=== PATIENT | female | born 1980 | race Caucasian/White ===

== ENCOUNTER 2020-07-03 10:23 | Day surgery (SDC) | payer MEDICARE, MEDICAID ==
[~2020-07-03] VITALS: Ht 165.1 cm; Wt 159.0 kg
[~2020-07-03 10:23] MED LIST: PHEN-716 PO; SULF1TAB49 PO
[2020-07-03 10:35] VITALS: BP 183/121
[2020-07-03] MEDS ORDERED: fentaNYL/PF 50MCG/1 ML 2ML syringe ONE (10:37)
[2020-07-03] MEDS ORDERED: MIDAZolam 5mg/5ml vial ONE (10:38)
[2020-07-03] MEDS ORDERED: METF-436 PO (11:08)
[2020-07-03 11:49] VITALS: BP 143/94
[2020-07-03 11:59] VITALS: BP 159/84
[2020-07-03 12:09] VITALS: BP 148/89
[2020-07-03 12:19] VITALS: BP 146/49
== END 2020-07-03 12:33 | disposition home or self-care (01) ==
LOC: GI LAB 10:23
PROVIDERS: ATTEND Internal Medicine Gastroenterology
DX: K92.1 Melena (principal); K59.00 Constipation, unspecified; D12.8 Benign neoplasm of rectum; K64.8 Other hemorrhoids; E11.9 Type 2 diabetes mellitus without complications; Z79.84 Long term (current) use of oral hypoglycemic drugs
CPT/HCPCS: 45385; C1773; G0500; J2250; J3010; J7040; 99152; A4620

== ENCOUNTER 2021-10-03 13:02 | Emergency (ER) | payer MEDICARE, MEDICAID ==
[~2021-10-03] VITALS: Ht 165.1 cm; Wt 215.9 kg
[~2021-10-03 13:02] MED LIST changes: +FERR325T29 PO; +LINE600T14 PO; +METF-1203 PO; +NYST60PO2 TP; -PHEN-716 PO; -SULF1TAB49 PO
[2021-10-03 14:40] LABS: ALANINE AMINOTRANSFERASE 12 U/L (12-78); ALBUMIN 2.8 G/DL (3.4-5.0); ALBUMIN/GLOBULIN RATIO 0.5 (1.1-1.5); ALKALINE PHOSPHATASE 44 IU/L (46-116); ANION GAP 11 (8-16); ASPARTATE AMINO TRANSFERASE 15 U/L (10-37); BILIRUBIN,TOTAL 0.3 MG/DL (0.1-1.0); BLOOD UREA NITROGEN 18 MG/DL (7-18); BUN/CREATININE RATIO 23.1 (6.6-38.0); C-REACTIVE PROTEIN 15.64 MG/DL (0.0-0.5); CALCIUM 8.6 MG/DL (8.5-10.1); CHLORIDE 105 MMOL/L (99-107); CREATININE 0.78 MG/DL (0.40-0.90); GLUCOSE 85 MG/DL (70-104); POTASSIUM 3.9 MMOL/L (3.5-5.1); SODIUM 139 MMOL/L (135-145); TOTAL CARBON DIOXIDE 23.3 MMOL/L (24-32); eGFR 81 ML/MIN
[2021-10-03 14:49] LABS: BASOPHILS % (AUTO) 0.3 % (0-1); EOSINOPHILS % (AUTO) 0.5 % (0-6); HEMATOCRIT 30.4 % (35.0-45.0); HEMOGLOBIN 9.4 g/dl (12.0-16.0); LYMPHOCYTES # (AUTO) 1.1 X10'3 (1.1-4.8); LYMPHOCYTES % (AUTO) 15.2 % (21-51); MEAN CORPUSCULAR HEMOGLOBIN 23.3 PG (27.0-31.0); MEAN CORPUSCULAR HGB CONC 30.9 g/dL (33.0-36.5); MEAN CORPUSCULAR VOLUME 75.5 FL (78-98); MEAN PLATELET VOLUME 9.3 FL (7.4-10.4); MONOCYTES # (AUTO) 0.5 X10'3 (0-0.9); MONOCYTES % (AUTO) 7.3 % (2-12); NEUTROPHILS # (AUTO) 5.4 X10'3 (1.8-7.7); NEUTROPHILS % (AUTO) 76.7 % (42-75); PLATELET COUNT 233 X10'3 (140-440); RED BLOOD COUNT 4.03 X10'6 (4.20-5.60); RED CELL DISTRIBUTION WIDTH 19.9 % (11.5-14.5)
[2021-10-03 15:19] LABS: ANISOCYTOSIS 2+; HYPOCHROMASIA 1+; MICROCYTOSIS 1+; PLATELET ESTIMATE NORMAL
[2021-10-03 15:20] LABS: LARGE PLATELETS FEW
[2021-10-03] MEDS ORDERED: levoFLOXACIN-Levaquin 750MG/D5 150 ML IV STA (18:46)
[2021-10-03] MEDS ORDERED: linezolid 600mg/300ml PREMIX 300 ML IV STA (21:15)
[2021-10-03] MEDS ORDERED: linezolid 600mg tablet PO ONE (21:55)
[2021-10-03] MEDS ORDERED: LINE600T11 PO (21:58)
[2021-10-04 00:05] VITALS: BP 111/89
== END 2021-10-04 00:08 | disposition home or self-care (01) ==
LOC: ER 13:04
DX: L03.116 Cellulitis of left lower limb (principal); I89.0 Lymphedema, not elsewhere classified; Z98.890 Other specified postprocedural states; Z79.899 Other long term (current) drug therapy
CPT/HCPCS: 36415; 73590; 80053; 83605; 84145; 85008; 85025; 85651; 86140; 87040; 99284

== ENCOUNTER 2022-01-11 11:10 | Emergency (ER) | payer MEDICARE, MEDICAID ==
[~2022-01-11] VITALS: Ht 165.1 cm; Wt 128.7 kg
[~2022-01-11 11:10] MED LIST changes: -FERR325T29 PO; -LINE600T14 PO; -NYST60PO2 TP
[2022-01-11] MEDS ORDERED: cefTRIAXone 1g/NS 100ml IVPB 100 ML IV ONE (12:00)
[2022-01-11] MEDS ORDERED: fluconazole 100mg tablet PO ONE (12:00)
[2022-01-11 12:30] LABS: BASOPHILS % (AUTO) 0.4 % (0-1); EOSINOPHILS # (AUTO) 0.1 X10'3 (0-0.9); EOSINOPHILS % (AUTO) 1.9 % (0-6); HEMATOCRIT 29.3 % (35.0-45.0); HEMOGLOBIN 9.2 g/dl (12.0-16.0); LYMPHOCYTES % (AUTO) 12.8 % (21-51); MEAN CORPUSCULAR HEMOGLOBIN 21.8 PG (27.0-31.0); MEAN CORPUSCULAR HGB CONC 31.4 g/dL (33.0-36.5); MEAN CORPUSCULAR VOLUME 69.3 FL (78-98); MEAN PLATELET VOLUME 7.7 FL (7.4-10.4); MONOCYTES # (AUTO) 0.7 X10'3 (0-0.9); MONOCYTES % (AUTO) 8.5 % (2-12); NEUTROPHILS # (AUTO) 5.9 X10'3 (1.8-7.7); NEUTROPHILS % (AUTO) 76.4 % (42-75); PLATELET COUNT 346 X10'3 (140-440); RED BLOOD COUNT 4.23 X10'6 (4.20-5.60); RED CELL DISTRIBUTION WIDTH 21.6 % (11.5-14.5); WHITE BLOOD COUNT 7.7 X10'3 (4.5-11.0)
[2022-01-11 12:43] LABS: ALANINE AMINOTRANSFERASE 17 U/L (12-78); ALBUMIN 2.8 G/DL (3.4-5.0); ALBUMIN/GLOBULIN RATIO 0.5 (1.1-1.5); ALKALINE PHOSPHATASE 45 IU/L (46-116); ANION GAP 8 (8-16); ASPARTATE AMINO TRANSFERASE 12 U/L (10-37); BILIRUBIN,TOTAL 0.3 MG/DL (0.1-1.0); BLOOD UREA NITROGEN 16 MG/DL (7-18); BUN/CREATININE RATIO 18.8 (6.6-38.0); CALCIUM 8.5 MG/DL (8.5-10.1); CHLORIDE 106 MMOL/L (99-107); CREATININE 0.85 MG/DL (0.40-0.90); GLUCOSE 90 MG/DL (70-104); POTASSIUM 4.7 MMOL/L (3.5-5.1); SODIUM 139 MMOL/L (135-145); TOTAL CARBON DIOXIDE 25.2 MMOL/L (24-32); TOTAL PROTEIN 8.1 G/DL (6.4-8.2); eGFR 73 ML/MIN
--- NOTE | 2022-01-11 13:31 | NUR ---
unable to start piv,Dr. Portillo made aware,will change order to po med.Urine obtained via straight cath.
[2022-01-11 13:39] LABS: CLARITY,URINE SLIGHTLY CLOUDY (Clear); COLOR,URINE YELLOW (Yellow); GLUCOSE, URINE NEGATIVE (Neg); KETONES,URINE NEGATIVE (Neg); LEUKOCYTE ESTERASE ,URINE SMALL (Neg); NITRITES, URINE POSITIVE (Neg); OCCULT BLOOD,URINE MODERATE (Neg); PROTEIN,URINE NEGATIVE (Neg); UROBILINOGEN,URINE 0.2 E.U/dL (0.2-1.0)
[2022-01-11 13:43] LABS: UA COLLECTION TYPE STRAIGHT CATH
[2022-01-11 13:44] LABS: BACTERIA,URINE NONE SEEN /HPF (Neg); MUCUS STRANDS FEW /LPF (Neg); RBC,URINE 0-2 /HPF (0-2); SQUAMOUS EPITHELIAL CELL,UR FEW /LPF (FEW); WBC,URINE 30-50 /HPF (0-4)
[2022-01-11] MEDS ORDERED: CEPH-585 PO ×2 (13:54→14:09)
[2022-01-11] MEDS ORDERED: NYST15PO4 TOP ×2 (13:54→14:09)
--- NOTE | 2022-01-11 14:10 | NUR ---
REDNESS MARKED ON LEFT LOWER ABD BELOW PANNUS WITH SKIN MARKER
[2022-01-11 14:13] VITALS: BP 130/77
== END 2022-01-11 14:15 | disposition home or self-care (01) ==
LOC: ER 11:11
DX: L03.116 Cellulitis of left lower limb (principal); N39.0 Urinary tract infection, site not specified; L30.4 Erythema intertrigo; Z98.890 Other specified postprocedural states; Z79.2 Long term (current) use of antibiotics; Z79.899 Other long term (current) drug therapy
CPT/HCPCS: 36415; 80053; 81001; 85025; 87077; 87088; 87186; 96365; 99284; J0696

== ENCOUNTER 2022-01-31 11:21 | Emergency (ER) | payer MEDICARE, MEDICAID ==
[~2022-01-31] VITALS: Ht 165.1 cm; Wt 132.4 kg
[~2022-01-31 11:21] MED LIST changes: +CEPH-585 PO; +NYST15PO4 TOP
[2022-01-31 11:46] VITALS: BP 134/79
[2022-01-31] MEDS ORDERED: FLUC200T PO (14:14)
[2022-01-31] MEDS ORDERED: NYSPWD TP (14:14)
== END 2022-01-31 14:22 | disposition home or self-care (01) ==
LOC: ER 11:22
DX: B37.89 Other sites of candidiasis (principal); Z87.440 Personal history of urinary (tract) infections; Z79.2 Long term (current) use of antibiotics; Z79.899 Other long term (current) drug therapy
CPT/HCPCS: 99283

== ENCOUNTER 2023-07-03 17:22 | Emergency (ER) | payer MEDICARE, MEDICAID ==
[~2023-07-03] VITALS: Ht 165.1 cm; Wt 160.0 kg
[~2023-07-03 17:22] MED LIST changes: -CEPH-585 PO; -METF-1203 PO; +NO HOME MEDS; -NYST15PO4 TOP
[2023-07-03] MEDS ORDERED: methylPREDNISolone sod succ 125mg/2ml vial IV ONE (17:25)
[2023-07-03] MEDS ORDERED: LORazepam 2 mg/ml vial IV ONE (17:25)
[2023-07-03] MEDS ORDERED: famotidine/PF 10 mg/ml inj IV ONE (19:25)
[2023-07-03] MEDS ORDERED: diphenhydrAMINE 50 mg/ml inj IV ONE (19:25)
[2023-07-03] MEDS ORDERED: FAMO-129 PO (20:48)
[2023-07-03] MEDS ORDERED: DIPH25CA83 PO (20:48)
[2023-07-03] MEDS ORDERED: PRED20TA PO (20:48)
[2023-07-03 20:57] VITALS: BP 130/85; PULSE 95; RESP 17; TEMP 98.9; O2SAT 99
[2023-07-03] MEDS ORDERED: dexamethasone sod phosphate 10mg/ml inj IV STA (21:01)
== END 2023-07-03 21:13 | disposition home or self-care (01) ==
LOC: ER 17:22
DX: S80.922A Unspecified superficial injury of left lower leg, initial encounter (principal); L50.9 Urticaria, unspecified; Z79.899 Other long term (current) drug therapy; X58.XXXA Exposure to other specified factors, initial encounter; Y93.89 Activity, other specified; Y92.89 Other specified places as the place of occurrence of the external cause; Y99.8 Other external cause status
CPT/HCPCS: 96374; 96375; 99284; J1100; J1200; J2060; J2930; J3490

== ENCOUNTER 2023-07-05 14:09 | Emergency (ER) | payer MEDICARE, MEDICAID ==
[~2023-07-05] VITALS: Ht 165.1 cm; Wt 129.6 kg
[~2023-07-05 14:09] MED LIST changes: +DIPH25CA83 PO; +FAMO-129 PO; +PRED20TA PO
[2023-07-05] MEDS ORDERED: normal saline 1000ML IV soln IVB ONE ×2 (17:20→22:05)
[2023-07-05 21:07] LABS: BASOPHILS % (AUTO) 0.4 % (0-1); EOSINOPHILS % (AUTO) 0 % (0-6); HEMATOCRIT 39.6 % (35.0-45.0); HEMOGLOBIN 12.8 g/dl (12.0-16.0); LYMPHOCYTES # (AUTO) 1.3 X10'3 (1.1-4.8); LYMPHOCYTES % (AUTO) 13.2 % (21-51); MEAN CORPUSCULAR HEMOGLOBIN 26.2 PG (27.0-31.0); MEAN CORPUSCULAR HGB CONC 32.3 g/dL (33.0-36.5); MEAN CORPUSCULAR VOLUME 81.2 FL (78-98); MEAN PLATELET VOLUME 8.8 FL (7.4-10.4); MONOCYTES # (AUTO) 0.4 X10'3 (0-0.9); MONOCYTES % (AUTO) 4.2 % (2-12); NEUTROPHILS % (AUTO) 82.2 % (42-75); PLATELET COUNT 364 X10'3 (140-440); RED BLOOD COUNT 4.88 X10'6 (4.20-5.60); WHITE BLOOD COUNT 9.8 X10'3 (4.5-11.0)
[2023-07-05 21:13] LABS: ALANINE AMINOTRANSFERASE 27 U/L (12-78); ALBUMIN 3.1 G/DL (3.4-5.0); ALBUMIN/GLOBULIN RATIO 0.7 (1.1-1.5); ALKALINE PHOSPHATASE 44 IU/L (46-116); ANION GAP 8 (8-16); ASPARTATE AMINO TRANSFERASE 15 U/L (10-37); BLOOD UREA NITROGEN 18 MG/DL (7-18); BUN/CREATININE RATIO 18.9 (10.0-20.0); CALCIUM 8.5 MG/DL (8.5-10.1); CHLORIDE 106 MMOL/L (99-107); CREATININE 0.95 MG/DL (0.40-0.90); GLUCOSE 115 MG/DL (70-104); SODIUM 139 MMOL/L (135-145); TOTAL CARBON DIOXIDE 24.6 MMOL/L (24-32); TOTAL PROTEIN 7.6 G/DL (6.4-8.2); eCRCL 67 ML/MIN; eGFR 64 ML/MIN
[2023-07-05 21:14] LABS: BILIRUBIN,TOTAL 0.2 MG/DL (0.1-1.0); LIPASE 32 U/L (16-77)
[2023-07-05 21:20] LABS: BILIRUBIN,URINE NEGATIVE (Neg); CLARITY,URINE CLOUDY (Clear); COLOR,URINE YELLOW (Yellow); GLUCOSE, URINE NEGATIVE (Neg); KETONES,URINE NEGATIVE (Neg); LEUKOCYTE ESTERASE ,URINE SMALL (Neg); NITRITES, URINE POSITIVE (Neg); OCCULT BLOOD,URINE MODERATE (Neg); PROTEIN,URINE NEGATIVE (Neg); UROBILINOGEN,URINE 0.2 E.U/dL (0.2-1.0)
[2023-07-05 21:21] LABS: UA COLLECTION TYPE CLN CATCH MIDSTREAM
[2023-07-05 21:46] LABS: BACTERIA,URINE 4+ /HPF (Neg); MUCUS STRANDS MODERATE /LPF (Neg); SQUAMOUS EPITHELIAL CELL,UR MANY /LPF (FEW)
[2023-07-05] MEDS ORDERED: pantoprazole 40 MG vial IV ONE (22:05)
[2023-07-05] MEDS ORDERED: ondansetron/PF 4mg/2ml inj IV ONE (22:05)
[2023-07-05] MEDS ORDERED: morphine 2 MG/ML inj. syringe IV PRN (22:05)
[2023-07-05] MEDS ORDERED: pantoprazole 40MG/NS 100ML BAG 100 ML IV ONE (22:10)
[2023-07-05] MEDS ORDERED: famotidine/PF 10 mg/ml inj IV ONE (22:35)
[2023-07-05] MEDS ORDERED: sucralfate 1 gm tablet PO ONE (22:35)
[2023-07-05] MEDS ORDERED: mag hydrox/Alum hydrox/simeth 30ml oral suspension PO ONE (22:35)
[2023-07-05 23:19] LABS: URINE HCG NEGATIVE (NEG)
[2023-07-05] MEDS ORDERED: iohexol 300mg/ml 100ml inj. ONE (23:31)
[2023-07-05] MEDS ORDERED: LORazepam 2 mg/ml vial IV ONE (23:45)
[2023-07-06 02:34] VITALS: BP 144/82; PULSE 63; RESP 26; O2SAT 97
[2023-07-06] MEDS ORDERED: SUCR1TAB34 PO (02:54)
[2023-07-06] MEDS ORDERED: MAG355OR18 PO (02:54)
[2023-07-06 03:32] VITALS: TEMP 97.7
== END 2023-07-06 03:47 | disposition home or self-care (01) ==
LOC: ER 14:10
DX: R10.9 Unspecified abdominal pain (principal); R11.10 Vomiting, unspecified
CPT/HCPCS: 36415; 71045; 74177; 80053; 81001; 81025; 83690; 85025; 96365; 96366; 96375; 99285; C9113; J2060; J2405; J3490; J7030; J7040; Q9967

== ENCOUNTER 2023-08-06 12:44 | Emergency (ER) | payer MEDICARE, MEDICAID ==
[~2023-08-06] VITALS: Ht 165.1 cm; Wt 169.5 kg
[~2023-08-06 12:44] MED LIST changes: -PRED20TA PO; +SUCR1TAB34 PO
[2023-08-06] MEDS ORDERED: piperacillin/tazo 3.375gm/50ml 50 ML IV ONE ×2 (14:50→17:15)
[2023-08-06] MEDS ORDERED: DOXYCYCLINE 100MG CAPSULE PO STA (14:50)
[2023-08-06] MEDS ORDERED: SULF1TAB45 PO (15:13)
[2023-08-06 18:23] VITALS: BP 148/88; PULSE 94; RESP 16; TEMP 98.4; O2SAT 99
--- NOTE | 2023-08-06 19:43 | NUR ---
AGREE WITH SHAYLA, SHIP PURSER ASSESSMENT, REVIEWED.
== END 2023-08-06 18:26 | disposition home or self-care (01) ==
LOC: ER 12:45
DX: S81.802A Unspecified open wound, left lower leg, initial encounter (principal); Z88.1 Allergy status to other antibiotic agents; Z79.2 Long term (current) use of antibiotics; Z79.899 Other long term (current) drug therapy; X58.XXXA Exposure to other specified factors, initial encounter; Y93.89 Activity, other specified; Y92.89 Other specified places as the place of occurrence of the external cause; Y99.8 Other external cause status
CPT/HCPCS: 96365; 99284; J2543

== ENCOUNTER 2023-09-22 14:13 | Emergency (ER) | payer MEDICARE, MEDICAID ==
[~2023-09-22] VITALS: Ht 165.1 cm; Wt 172.7 kg
[2023-09-22 18:22] LABS: EOSINOPHILS # (AUTO) 0.2 X10'3 (0-0.9); MEAN CORPUSCULAR HEMOGLOBIN 24.9 PG (27.0-31.0); MONOCYTES # (AUTO) 0.6 X10'3 (0-0.9)
[2023-09-22 18:24] LABS: BASOPHILS # (AUTO) 0.1 X10'3 (0-0.2); BASOPHILS % (AUTO) 1.3 % (0-1); EOSINOPHILS % (AUTO) 2.3 % (0-6); HEMATOCRIT 39.6 % (35.0-45.0); HEMOGLOBIN 12.7 g/dl (12.0-16.0); LYMPHOCYTES # (AUTO) 1.5 X10'3 (1.1-4.8); LYMPHOCYTES % (AUTO) 17.8 % (21-51); MEAN CORPUSCULAR VOLUME 77.8 FL (78-98); MEAN PLATELET VOLUME 8.6 FL (7.4-10.4); MONOCYTES % (AUTO) 6.9 % (2-12); NEUTROPHILS # (AUTO) 6.2 X10'3 (1.8-7.7); NEUTROPHILS % (AUTO) 71.7 % (42-75); PLATELET COUNT 351 X10'3 (140-440); RED BLOOD COUNT 5.09 X10'6 (4.20-5.60); RED CELL DISTRIBUTION WIDTH 16.3 % (11.5-14.5); WHITE BLOOD COUNT 8.6 X10'3 (4.5-11.0)
[2023-09-22 18:36] LABS: ALANINE AMINOTRANSFERASE 39 U/L (12-78); ALBUMIN/GLOBULIN RATIO 0.5 (1.1-1.5); ALKALINE PHOSPHATASE 43 IU/L (46-116); ANION GAP 7 (8-16); ASPARTATE AMINO TRANSFERASE 26 U/L (10-37); BILIRUBIN,TOTAL 0.3 MG/DL (0.1-1.0); BLOOD UREA NITROGEN 13 MG/DL (7-18); BUN/CREATININE RATIO 14.4 (10.0-20.0); CALCIUM 9.1 MG/DL (8.5-10.1); CHLORIDE 105 MMOL/L (99-107); GLUCOSE 86 MG/DL (70-104); POTASSIUM 4.4 MMOL/L (3.5-5.1); SODIUM 141 MMOL/L (135-145); TOTAL CARBON DIOXIDE 29.4 MMOL/L (24-32); TOTAL PROTEIN 8.5 G/DL (6.4-8.2); eCRCL 71 ML/MIN; eGFR 68 ML/MIN
[2023-09-22] MEDS ORDERED: azithromycin 250mg tablet PO ONE (20:30)
[2023-09-22] MEDS ORDERED: ipratropium/albuterol 3ml nebule NEB ONE (20:30)
[2023-09-22] MEDS ORDERED: amox tr/potassium clavulanate 875/125mg TAB PO ONE (20:30)
[2023-09-22] MEDS ORDERED: predniSONE 20 mg tablet PO ONE (20:30)
[2023-09-22 20:51] VITALS: PULSE 87; RESP 18
[2023-09-22 20:58] VITALS: PULSE 88; RESP 18; O2SAT 98
[2023-09-22] MEDS ORDERED: PRED20TA PO (21:04)
[2023-09-22] MEDS ORDERED: AZIT250T83 PO (21:04)
[2023-09-22] MEDS ORDERED: ALBU8HFA PO (21:04)
[2023-09-22] MEDS ORDERED: AMOX-117 PO (21:04)
[2023-09-22 21:21] VITALS: BP 153/90; PULSE 101; RESP 17; TEMP 97.6; O2SAT 0
== END 2023-09-22 21:24 | disposition home or self-care (01) ==
LOC: ER 14:14
DX: J20.9 Acute bronchitis, unspecified (principal); Z88.1 Allergy status to other antibiotic agents; Z79.2 Long term (current) use of antibiotics; Z79.899 Other long term (current) drug therapy
CPT/HCPCS: 36415; 71045; 80053; 83605; 84145; 85025; 87040; 94640; 99284; J7512; 94760

== ENCOUNTER 2023-09-30 16:03 | Emergency (ER) | payer MEDICARE, MEDICAID ==
[~2023-09-30] VITALS: Ht 165.1 cm; Wt 163.0 kg
[~2023-09-30 16:03] MED LIST changes: +ALBU8HFA PO; +AMOX-117 PO
[2023-09-30 19:17] LABS: BASOPHILS # (AUTO) 0.1 X10'3 (0-0.2); BASOPHILS % (AUTO) 1.5 % (0-1); EOSINOPHILS # (AUTO) 0.1 X10'3 (0-0.9); EOSINOPHILS % (AUTO) 0.6 % (0-6); HEMATOCRIT 42.2 % (35.0-45.0); HEMOGLOBIN 13.6 g/dl (12.0-16.0); LYMPHOCYTES # (AUTO) 2.7 X10'3 (1.1-4.8); LYMPHOCYTES % (AUTO) 26.3 % (21-51); MEAN CORPUSCULAR HEMOGLOBIN 25.1 PG (27.0-31.0); MEAN CORPUSCULAR HGB CONC 32.1 g/dL (33.0-36.5); MEAN CORPUSCULAR VOLUME 78.1 FL (78-98); MEAN PLATELET VOLUME 8.9 FL (7.4-10.4); MONOCYTES # (AUTO) 0.6 X10'3 (0-0.9); MONOCYTES % (AUTO) 5.6 % (2-12); NEUTROPHILS # (AUTO) 6.7 X10'3 (1.8-7.7); PLATELET COUNT 404 X10'3 (140-440); RED CELL DISTRIBUTION WIDTH 16.6 % (11.5-14.5); WHITE BLOOD COUNT 10.2 X10'3 (4.5-11.0)
[2023-09-30 19:26] LABS: ALANINE AMINOTRANSFERASE 28 U/L (12-78); ALBUMIN 3.5 G/DL (3.4-5.0); ALBUMIN/GLOBULIN RATIO 0.7 (1.1-1.5); ALKALINE PHOSPHATASE 46 IU/L (46-116); ANION GAP 9 (8-16); ASPARTATE AMINO TRANSFERASE 17 U/L (10-37); BILIRUBIN,TOTAL 0.5 MG/DL (0.1-1.0); BLOOD UREA NITROGEN 16 MG/DL (7-18); BUN/CREATININE RATIO 17.8 (10.0-20.0); CALCIUM 9.1 MG/DL (8.5-10.1); CHLORIDE 104 MMOL/L (99-107); GLUCOSE 98 MG/DL (70-104); LIPASE 46 U/L (16-77); POTASSIUM 3.7 MMOL/L (3.5-5.1); SODIUM 140 MMOL/L (135-145); TOTAL CARBON DIOXIDE 27.3 MMOL/L (24-32); TOTAL PROTEIN 8.7 G/DL (6.4-8.2); eCRCL 71 ML/MIN; eGFR 68 ML/MIN
[2023-10-01] MEDS ORDERED: ondansetron/PF 4mg/2ml inj IV ONE (10:10)
[2023-10-01] MEDS ORDERED: HYDROmorphone 1 mg/ml syringe IV STA (10:10)
[2023-10-01 10:44] LABS: BILIRUBIN,URINE NEGATIVE (Neg); CLARITY,URINE SLIGHTLY CLOUDY (Clear); COLOR,URINE YELLOW (Yellow); GLUCOSE, URINE NEGATIVE (Neg); KETONES,URINE NEGATIVE (Neg); LEUKOCYTE ESTERASE ,URINE SMALL (Neg); NITRITES, URINE NEGATIVE (Neg); OCCULT BLOOD,URINE NEGATIVE (Neg); PH,URINE 5.5 (4.8-8.0); PROTEIN,URINE TRACE mg/dl (Neg); UROBILINOGEN,URINE 0.2 E.U/dL (0.2-1.0)
[2023-10-01 10:46] LABS: UA COLLECTION TYPE CLN CATCH MIDSTREAM
[2023-10-01 10:52] LABS: URINE HCG NEGATIVE (NEG)
[2023-10-01 10:59] LABS: SQUAMOUS EPITHELIAL CELL,UR MANY /LPF (FEW)
[2023-10-01] MEDS ORDERED: ondansetron 4mg rapidly disintigrating tab PO ONE (11:00)
[2023-10-01] MEDS ORDERED: HYDROmorphone 1 mg/ml syringe IM ONE (11:00)
[2023-10-01 11:04] LABS: CAL OXALATE CRYSTALS 1+ /HPF (NEGATIVE)
[2023-10-01 11:05] LABS: WBC,URINE 30-50 /HPF (0-4)
[2023-10-01 11:10] LABS: MUCUS STRANDS MODERATE /LPF (Neg)
[2023-10-01 11:12] LABS: BACTERIA,URINE 1+ /HPF (Neg)
[2023-10-01 11:15] LABS: TRANSITIONAL EPI CELLS,URINE FEW /HPF
[2023-10-01 11:20] LABS: WBC CLUMPS,URINE FEW /HPF (NEGATIVE)
[2023-10-01 11:22] LABS: YEAST FEW /HPF (NEGATIVE)
[2023-10-01 12:12] LABS: HCG SERUM QL NEGATIVE
[2023-10-01] MEDS ORDERED: CefTRIAXone/D5W-Rocephin 1gm 50 ML IV STA (12:22)
[2023-10-01] MEDS ORDERED: CefTRIAXone 500MG IM Kit w/LIDOcaine IM ONE (13:20)
[2023-10-01 13:33] LABS: BILIRUBIN,URINE NEGATIVE (Neg); CLARITY,URINE SLIGHTLY CLOUDY (Clear); COLOR,URINE YELLOW (Yellow); GLUCOSE, URINE NEGATIVE (Neg); KETONES,URINE NEGATIVE (Neg); LEUKOCYTE ESTERASE ,URINE TRACE (Neg); NITRITES, URINE NEGATIVE (Neg); OCCULT BLOOD,URINE TRACE-INTACT (Neg); PROTEIN,URINE NEGATIVE (Neg); UROBILINOGEN,URINE 0.2 E.U/dL (0.2-1.0)
[2023-10-01] MEDS ORDERED: CefTRIAXone 1000mg IM Kit (w/lidocaine diluent) IM ONE (13:35)
[2023-10-01 13:36] LABS: UA COLLECTION TYPE CLN CATCH MIDSTREAM
[2023-10-01 14:00] LABS: MUCUS STRANDS MANY /LPF (Neg); SQUAMOUS EPITHELIAL CELL,UR MANY /LPF (FEW)
[2023-10-01 14:02] LABS: WBC,URINE 20-30 /HPF (0-4)
[2023-10-01 14:03] LABS: RBC,URINE 0-2 /HPF (0-2)
[2023-10-01 14:05] LABS: BACTERIA,URINE 1+ /HPF (Neg)
[2023-10-01] MEDS ORDERED: CEPH-585 PO (14:56)
[2023-10-01] MEDS ORDERED: HYDR-3965 PO (14:56)
[2023-10-01 15:21] VITALS: BP 153/92; PULSE 69; RESP 16; TEMP 98.2; O2SAT 96
== END 2023-10-01 16:06 | disposition home or self-care (01) ==
LOC: ER 16:03
DX: N39.0 Urinary tract infection, site not specified (principal); R10.31 Right lower quadrant pain; R51.9 Headache, unspecified; Z88.1 Allergy status to other antibiotic agents; Z79.899 Other long term (current) drug therapy
CPT/HCPCS: 36415; 74176; 76770; 76857; 80053; 81001; 81025; 83690; 84703; 85025; 96372; 99285; J0696; J1170; J7030; C1758

== ENCOUNTER 2024-01-07 13:31 | Inpatient (IN) | payer MEDICARE, MEDICAID ==
[~2024-01-07] VITALS: Ht 165.1 cm; Wt 168.0 kg
[~2024-01-07 13:31] MED LIST changes: -ALBU8HFA PO; -AMOX-117 PO
[2024-01-07] MEDS: vancomycin/NS 1 GM ADD-VANTAGE 250 ML X 1 DOSE IV ONE (15:15)
[2024-01-07] MEDS: normal saline 1000ML IV soln IV ONE (15:53)
[2024-01-07] MEDS: CefTRIAXone 2gm/D5W 50ml BAG 50 ML IV ONE (15:54)
[2024-01-07 16:09] LABS: BASOPHILS # (AUTO) 0.1 X10'3 (0-0.2); BASOPHILS % (AUTO) 0.8 % (0-1); EOSINOPHILS # (AUTO) 0.1 X10'3 (0-0.9); EOSINOPHILS % (AUTO) 1.3 % (0-6); HEMATOCRIT 36.9 % (35.0-45.0); HEMOGLOBIN 11.8 g/dl (12.0-16.0); LYMPHOCYTES # (AUTO) 1.3 X10'3 (1.1-4.8); LYMPHOCYTES % (AUTO) 19.5 % (21-51); MEAN CORPUSCULAR HEMOGLOBIN 24.2 PG (27.0-31.0); MEAN CORPUSCULAR HGB CONC 32.1 g/dL (33.0-36.5); MEAN CORPUSCULAR VOLUME 75.4 FL (78-98); MEAN PLATELET VOLUME 8.5 FL (7.4-10.4); MONOCYTES # (AUTO) 0.7 X10'3 (0-0.9); MONOCYTES % (AUTO) 10.2 % (2-12); NEUTROPHILS # (AUTO) 4.5 X10'3 (1.8-7.7); NEUTROPHILS % (AUTO) 68.2 % (42-75); PLATELET COUNT 295 X10'3 (140-440); RED BLOOD COUNT 4.89 X10'6 (4.20-5.60); RED CELL DISTRIBUTION WIDTH 17.2 % (11.5-14.5); WHITE BLOOD COUNT 6.7 X10'3 (4.5-11.0)
[2024-01-07 16:17] LABS: ALBUMIN 2.9 G/DL (3.4-5.0); ANION GAP 7 (8-16); BLOOD UREA NITROGEN 10 MG/DL (7-18); CALCIUM 8.7 MG/DL (8.5-10.1); CHLORIDE 105 MMOL/L (99-107); CREATININE 0.83 MG/DL (0.40-0.90); GLUCOSE 87 MG/DL (70-104); MAGNESIUM 1.9 MG/DL (1.5-2.4); SODIUM 141 MMOL/L (135-145); eCRCL 77 ML/MIN; eGFR 74 ML/MIN
[2024-01-07 17:19] LABS: URINE HCG NEGATIVE (NEG)
[2024-01-07 17:29] LABS: BILIRUBIN,URINE NEGATIVE (Neg); CLARITY,URINE CLOUDY (Clear); COLOR,URINE YELLOW (Yellow); GLUCOSE, URINE NEGATIVE (Neg); KETONES,URINE NEGATIVE (Neg); LEUKOCYTE ESTERASE ,URINE MODERATE (Neg); NITRITES, URINE POSITIVE (Neg); OCCULT BLOOD,URINE TRACE-INTACT (Neg); PROTEIN,URINE NEGATIVE (Neg); UROBILINOGEN,URINE 0.2 E.U/dL (0.2-1.0)
[2024-01-07 17:35] LABS: UA COLLECTION TYPE VOIDED
[2024-01-07 17:36] LABS: SQUAMOUS EPITHELIAL CELL,UR MODERATE /LPF (FEW)
[2024-01-07 17:37] LABS: BACTERIA,URINE 4+ /HPF (Neg); RBC,URINE 0-2 /HPF (0-2); WBC,URINE TNTC /HPF (0-4)
[2024-01-07] MEDS ORDERED: acetaminophen 325mg tablet PO PRN ×2 (18:00)
[2024-01-07] MEDS ORDERED: magnesium hydroxide 30ml (MOM) UD suspension PO PRN (18:00)
[2024-01-07] MEDS ORDERED: diphenhydrAMINE 25mg capsule PO PRN (18:00)
[2024-01-07] MEDS ORDERED: bisacodyl 10mg suppository rectal RC PRN (18:00)
[2024-01-07] MEDS ORDERED: diphenhydrAMINE 50 mg/ml inj IV PRN (18:00)
[2024-01-07] MEDS ORDERED: morphine 2 MG/ML inj. syringe IV PRN (18:00)
[2024-01-07] MEDS ORDERED: acetaminophen 650mg rectal suppository RC PRN (18:00)
[2024-01-07] MEDS: morphine 4 MG/ML inj SYRINge IV ONE (18:48)
[2024-01-07] MEDS: normal saline 1000ml 1,000 ML IV SCH (18:50)
[2024-01-07 19:19] LABS: HEMOGLOBIN A1C 6.2 % (4.5-6.2)
[2024-01-07 19:30] LABS: PRO BRAIN NATRIURETIC PEPTIDE < 30 PG/ML (0-125); THYROID STIMULATING HORMONE 1.55 ulU/ml (0.34-4.50)
[2024-01-07] MEDS: TETanus/Pertussis (Acell)/Diphther VAC/PF (Tdap-Adult) 0.5ml syringe IMVAC ONE (19:45)
[2024-01-07] MEDS: docusate sod 100mg capsule PO SCH (19:46)
[2024-01-07] MEDS ORDERED: vancomycin/NS 1 GM ADD-VANTAGE 250 ML IV SCH (20:00)
[2024-01-07] MEDS ORDERED: temazepam 15mg capsule PO PRN (21:00)
[2024-01-07 22:02] LABS: APTT 28 SECONDS (22-32); PROTHROMBIN TIME 10.9 SECONDS (9.0-12.0)
[2024-01-07 22:43] VITALS: BP 154/87; PULSE 108; RESP 18; TEMP 97.6; O2SAT 96
[2024-01-07] MEDS: vancomycin/NS 1 GM ADD-VANTAGE 250 ML IV SCH (23:59)
[2024-01-08] MEDS: heparin, porcine 5000 units/ml vial SQ SCH
[2024-01-08] MEDS: ondansetron 4mg rapidly disintigrating tab PO PRN (01:25)
[2024-01-08 06:29] VITALS: BP 126/79; PULSE 95; RESP 17; TEMP 98.1; O2SAT 98
[2024-01-08] MEDS ORDERED: cloNIDine hcl/PF 100mcg/ml inj ONE (07:12)
[2024-01-08 07:40] LABS: BASOPHILS % (AUTO) 0.4 % (0-1); EOSINOPHILS # (AUTO) 0.1 X10'3 (0-0.9); EOSINOPHILS % (AUTO) 2.2 % (0-6); HEMATOCRIT 37.2 % (35.0-45.0); HEMOGLOBIN 11.8 g/dl (12.0-16.0); LYMPHOCYTES # (AUTO) 1.1 X10'3 (1.1-4.8); LYMPHOCYTES % (AUTO) 21.1 % (21-51); MEAN CORPUSCULAR HEMOGLOBIN 24.1 PG (27.0-31.0); MEAN CORPUSCULAR HGB CONC 31.8 g/dL (33.0-36.5); MEAN CORPUSCULAR VOLUME 75.7 FL (78-98); MEAN PLATELET VOLUME 8.2 FL (7.4-10.4); MONOCYTES # (AUTO) 0.6 X10'3 (0-0.9); MONOCYTES % (AUTO) 11.4 % (2-12); NEUTROPHILS # (AUTO) 3.2 X10'3 (1.8-7.7); NEUTROPHILS % (AUTO) 64.9 % (42-75); PLATELET COUNT 334 X10'3 (140-440); RED BLOOD COUNT 4.92 X10'6 (4.20-5.60)
[2024-01-08 08:00] VITALS: RESP 18; O2SAT 98
[2024-01-08 08:11] LABS: ALANINE AMINOTRANSFERASE 21 U/L (12-78); ALBUMIN 2.7 G/DL (3.4-5.0); ALBUMIN/GLOBULIN RATIO 0.5 (1.1-1.5); ALKALINE PHOSPHATASE 35 IU/L (46-116); ANION GAP 9 (8-16); ASPARTATE AMINO TRANSFERASE 10 U/L (10-37); BILIRUBIN,TOTAL 0.6 MG/DL (0.1-1.0); BLOOD UREA NITROGEN 9 MG/DL (7-18); BUN/CREATININE RATIO 10.2 (10.0-20.0); CALCIUM 8.1 MG/DL (8.5-10.1); CHLORIDE 106 MMOL/L (99-107); CHOL/HDL RATIO 3.1 (0.00-4.99); CHOLESTEROL 127 MG/DL (0-200); CREATININE 0.88 MG/DL (0.40-0.90); GLUCOSE 92 MG/DL (70-104); HDL CHOLESTEROL 41 MG/DL (35-60); LDL CHOLESTEROL 73 MG/DL (50-100); POTASSIUM 3.9 MMOL/L (3.5-5.1); SODIUM 140 MMOL/L (135-145); TOTAL CARBON DIOXIDE 25.3 MMOL/L (24-32); TRIGLYCERIDES 106 MG/DL (20-135); eCRCL 73 ML/MIN; eGFR 69 ML/MIN
[2024-01-08] MEDS: pantoprazole 40mg Tablet.DR PO SCH (09:10)
[2024-01-08] MEDS: CefTRIAXone 2gm/D5W 50ml BAG 50 ML IV SCH (09:13)
[2024-01-08 11:26] VITALS: BP 103/75; PULSE 86; RESP 18; TEMP 97.9; O2SAT 100
[2024-01-08] MEDS: VANCOMYCIN LEVEL IV ONE (14:30)
[2024-01-08 18:00] VITALS: BP 152/93; PULSE 88; RESP 18; TEMP 97.6; O2SAT 96
[2024-01-08] MEDS: HYDROcodone/acetaminophen 10/325mg tab PO PRN (19:26)
[2024-01-08 22:00] VITALS: BP 107/65; PULSE 75; RESP 16; TEMP 98.1; O2SAT 100
[2024-01-08] MEDS: mag hydrox/Alum hydrox/simeth 30ml oral suspension PO PRN (22:36)
[2024-01-09 06:43] VITALS: BP 136/54; PULSE 80; RESP 19; TEMP 97.8; O2SAT 98
[2024-01-09 07:11] LABS: BASOPHILS # (AUTO) 0.1 X10'3 (0-0.2); BASOPHILS % (AUTO) 1.1 % (0-1); EOSINOPHILS # (AUTO) 0.1 X10'3 (0-0.9); EOSINOPHILS % (AUTO) 2.2 % (0-6); HEMATOCRIT 36.4 % (35.0-45.0); HEMOGLOBIN 11.5 g/dl (12.0-16.0); LYMPHOCYTES % (AUTO) 19.8 % (21-51); MEAN CORPUSCULAR HGB CONC 31.7 g/dL (33.0-36.5); MEAN CORPUSCULAR VOLUME 75.7 FL (78-98); MEAN PLATELET VOLUME 8.6 FL (7.4-10.4); MONOCYTES # (AUTO) 0.5 X10'3 (0-0.9); MONOCYTES % (AUTO) 9.3 % (2-12); NEUTROPHILS # (AUTO) 3.3 X10'3 (1.8-7.7); NEUTROPHILS % (AUTO) 67.6 % (42-75); PLATELET COUNT 300 X10'3 (140-440); RED CELL DISTRIBUTION WIDTH 16.9 % (11.5-14.5); WHITE BLOOD COUNT 4.9 X10'3 (4.5-11.0)
[2024-01-09 07:35] LABS: ALANINE AMINOTRANSFERASE 17 U/L (12-78); ALBUMIN 2.5 G/DL (3.4-5.0); ALBUMIN/GLOBULIN RATIO 0.5 (1.1-1.5); ALKALINE PHOSPHATASE 35 IU/L (46-116); ANION GAP 9 (8-16); ASPARTATE AMINO TRANSFERASE 13 U/L (10-37); BILIRUBIN,TOTAL 0.5 MG/DL (0.1-1.0); BLOOD UREA NITROGEN 11 MG/DL (7-18); BUN/CREATININE RATIO 13.3 (10.0-20.0); CALCIUM 8.2 MG/DL (8.5-10.1); CHLORIDE 106 MMOL/L (99-107); CREATININE 0.83 MG/DL (0.40-0.90); GLUCOSE 89 MG/DL (70-104); POTASSIUM 4.3 MMOL/L (3.5-5.1); SODIUM 141 MMOL/L (135-145); TOTAL PROTEIN 7.5 G/DL (6.4-8.2); eCRCL 77 ML/MIN; eGFR 74 ML/MIN
[2024-01-09 08:20] VITALS: RESP 18; O2SAT 98
[2024-01-09] MEDS: nystatin 15 GM powder TP SCH (08:21)
[2024-01-09] MEDS: HYDROcodone/acetaminophen 5mg/325mg tablet PO PRN (08:28)
[2024-01-09 22:00] VITALS: BP 125/71; PULSE 73; RESP 18; TEMP 97.5; O2SAT 98
[2024-01-10] MEDS: ondansetron/PF 4mg/2ml inj IV PRN (07:25)
[2024-01-10 07:58] LABS: HEMATOCRIT 36.9 % (35.0-45.0); HEMOGLOBIN 11.7 g/dl (12.0-16.0); MEAN CORPUSCULAR HEMOGLOBIN 24.2 PG (27.0-31.0); MEAN CORPUSCULAR HGB CONC 31.8 g/dL (33.0-36.5); MEAN CORPUSCULAR VOLUME 76.3 FL (78-98); MEAN PLATELET VOLUME 8.5 FL (7.4-10.4); PLATELET COUNT 311 X10'3 (140-440); RED BLOOD COUNT 4.83 X10'6 (4.20-5.60); RED CELL DISTRIBUTION WIDTH 16.7 % (11.5-14.5); WHITE BLOOD COUNT 4.2 X10'3 (4.5-11.0)
[2024-01-10 08:00] VITALS: RESP 16; O2SAT 99
[2024-01-10 08:25] LABS: ANISOCYTOSIS 1+; MICROCYTOSIS 1+; PLATELET ESTIMATE NORMAL; TOTAL CELLS COUNTED 100
[2024-01-10 08:26] LABS: ALANINE AMINOTRANSFERASE 9 U/L (12-78); ALBUMIN 2.3 G/DL (3.4-5.0); ALBUMIN/GLOBULIN RATIO 0.4 (1.1-1.5); ALKALINE PHOSPHATASE 25 IU/L (46-116); ANION GAP 10 (8-16); ASPARTATE AMINO TRANSFERASE 15 U/L (10-37); BILIRUBIN,TOTAL 0.3 MG/DL (0.1-1.0); BLOOD UREA NITROGEN 11 MG/DL (7-18); BUN/CREATININE RATIO 15.3 (10.0-20.0); CALCIUM 8.1 MG/DL (8.5-10.1); CHLORIDE 106 MMOL/L (99-107); CREATININE 0.72 MG/DL (0.40-0.90); GLUCOSE 84 MG/DL (70-104); HYPOCHROMASIA 1+; POIKILOCYTOSIS FEW; ROULEAUX 1+; SODIUM 139 MMOL/L (135-145); TOTAL CARBON DIOXIDE 22.6 MMOL/L (24-32); TOTAL PROTEIN 7.6 G/DL (6.4-8.2); eCRCL 89 ML/MIN; eGFR 88 ML/MIN
[2024-01-10 08:27] LABS: POTASSIUM 4.4 MMOL/L (3.5-5.1)
[2024-01-10 10:00] VITALS: BP 127/74; PULSE 87; RESP 16; TEMP 97.6; O2SAT 98
[2024-01-10 18:00] VITALS: BP 129/64; PULSE 81; RESP 14; TEMP 97.5; O2SAT 96
[2024-01-10 20:00] VITALS: RESP 16; O2SAT 99
[2024-01-10 22:15] VITALS: BP 103/54; PULSE 70; RESP 17; TEMP 98; O2SAT 99
[2024-01-11 06:00] VITALS: BP 105/44; PULSE 63; RESP 16; TEMP 97.7; O2SAT 97
[2024-01-11 10:00] VITALS: BP 127/75; PULSE 103; RESP 19; TEMP 96.9; O2SAT 98
[2024-01-11 16:51] LABS: BASOPHILS # (AUTO) 0.1 X10'3 (0-0.2); EOSINOPHILS # (AUTO) 0.1 X10'3 (0-0.9); EOSINOPHILS % (AUTO) 1.4 % (0-6); HEMATOCRIT 34.6 % (35.0-45.0); HEMOGLOBIN 11.1 g/dl (12.0-16.0); LYMPHOCYTES % (AUTO) 17.2 % (21-51); MEAN CORPUSCULAR HEMOGLOBIN 24.2 PG (27.0-31.0); MEAN CORPUSCULAR HGB CONC 32.2 g/dL (33.0-36.5); MEAN CORPUSCULAR VOLUME 75.2 FL (78-98); MEAN PLATELET VOLUME 8.6 FL (7.4-10.4); MONOCYTES # (AUTO) 0.3 X10'3 (0-0.9); MONOCYTES % (AUTO) 5.3 % (2-12); NEUTROPHILS # (AUTO) 4.2 X10'3 (1.8-7.7); NEUTROPHILS % (AUTO) 75.1 % (42-75); PLATELET COUNT 303 X10'3 (140-440); RED BLOOD COUNT 4.61 X10'6 (4.20-5.60); RED CELL DISTRIBUTION WIDTH 16.8 % (11.5-14.5); WHITE BLOOD COUNT 5.5 X10'3 (4.5-11.0)
[2024-01-11 17:05] LABS: ALANINE AMINOTRANSFERASE 21 U/L (12-78); ALBUMIN 2.5 G/DL (3.4-5.0); ALBUMIN/GLOBULIN RATIO 0.5 (1.1-1.5); ALKALINE PHOSPHATASE 33 IU/L (46-116); ANION GAP 9 (8-16); ASPARTATE AMINO TRANSFERASE 15 U/L (10-37); BILIRUBIN,TOTAL 0.2 MG/DL (0.1-1.0); BLOOD UREA NITROGEN 12 MG/DL (7-18); BUN/CREATININE RATIO 12.4 (10.0-20.0); CALCIUM 8.5 MG/DL (8.5-10.1); CHLORIDE 105 MMOL/L (99-107); CREATININE 0.97 MG/DL (0.40-0.90); GLUCOSE 111 MG/DL (70-104); SODIUM 140 MMOL/L (135-145); TOTAL CARBON DIOXIDE 26.4 MMOL/L (24-32); TOTAL PROTEIN 7.4 G/DL (6.4-8.2); eCRCL 66 ML/MIN; eGFR 62 ML/MIN
[2024-01-11 18:00] VITALS: BP 140/64; PULSE 73; RESP 18; TEMP 97.5; O2SAT 100
[2024-01-11] MEDS: MEROPENEM 1GM/NS 100ML IVPB 100 ML IV SCH (19:36)
[2024-01-11 20:00] VITALS: O2SAT 98
[2024-01-11] MEDS ORDERED: nystatin 15 GM powder TP SCH (20:00)
[2024-01-11 22:00] VITALS: BP 139/79; PULSE 83; RESP 16; TEMP 98.2; O2SAT 100
[2024-01-12 06:00] VITALS: BP 139/58; PULSE 70; RESP 16; TEMP 97.2; O2SAT 96
[2024-01-12 07:29] LABS: BASOPHILS % (AUTO) 1.1 % (0-1); EOSINOPHILS # (AUTO) 0.1 X10'3 (0-0.9); EOSINOPHILS % (AUTO) 2.1 % (0-6); HEMATOCRIT 34.9 % (35.0-45.0); HEMOGLOBIN 11.2 g/dl (12.0-16.0); LYMPHOCYTES # (AUTO) 1.2 X10'3 (1.1-4.8); MEAN CORPUSCULAR HEMOGLOBIN 24.1 PG (27.0-31.0); MEAN CORPUSCULAR VOLUME 75.2 FL (78-98); MEAN PLATELET VOLUME 8.6 FL (7.4-10.4); MONOCYTES # (AUTO) 0.3 X10'3 (0-0.9); MONOCYTES % (AUTO) 7.5 % (2-12); NEUTROPHILS # (AUTO) 2.7 X10'3 (1.8-7.7); NEUTROPHILS % (AUTO) 61.3 % (42-75); PLATELET COUNT 308 X10'3 (140-440); RED BLOOD COUNT 4.64 X10'6 (4.20-5.60); RED CELL DISTRIBUTION WIDTH 16.8 % (11.5-14.5); WHITE BLOOD COUNT 4.4 X10'3 (4.5-11.0)
[2024-01-12 07:49] LABS: ALANINE AMINOTRANSFERASE 20 U/L (12-78); ALBUMIN 2.5 G/DL (3.4-5.0); ALBUMIN/GLOBULIN RATIO 0.5 (1.1-1.5); ALKALINE PHOSPHATASE 29 IU/L (46-116); ANION GAP 6 (8-16); ASPARTATE AMINO TRANSFERASE 18 U/L (10-37); BILIRUBIN,TOTAL 0.3 MG/DL (0.1-1.0); BLOOD UREA NITROGEN 11 MG/DL (7-18); BUN/CREATININE RATIO 13.8 (10.0-20.0); CALCIUM 8.4 MG/DL (8.5-10.1); CHLORIDE 106 MMOL/L (99-107); GLUCOSE 89 MG/DL (70-104); POTASSIUM 4.2 MMOL/L (3.5-5.1); SODIUM 138 MMOL/L (135-145); TOTAL CARBON DIOXIDE 25.9 MMOL/L (24-32); TOTAL PROTEIN 7.3 G/DL (6.4-8.2); eCRCL 80 ML/MIN; eGFR 78 ML/MIN
[2024-01-12 10:00] VITALS: BP 119/44; PULSE 65; RESP 16; TEMP 98.6; O2SAT 97
[2024-01-12] MEDS ORDERED: SULF1TAB49 PO (14:31)
== END 2024-01-12 15:30 | disposition home health service (06) | DRG 602 ==
LOC: ER 13:32 → ED HOLD 18:01 → ORTHO 4S 21:47
PROVIDERS: ADMIT Family Medicine; ATTEND Family Medicine
DX: L03.116 Cellulitis of left lower limb (principal); I50.33 Acute on chronic diastolic (congestive) heart failure; N39.0 Urinary tract infection, site not specified; Z68.44 Body mass index [BMI] 60.0-69.9, adult; I11.0 Hypertensive heart disease with heart failure; E66.01 Morbid (severe) obesity due to excess calories; E78.5 Hyperlipidemia, unspecified; I73.9 Peripheral vascular disease, unspecified; I89.0 Lymphedema, not elsewhere classified; K21.9 Gastro-esophageal reflux disease without esophagitis; K76.0 Fatty (change of) liver, not elsewhere classified; L30.9 Dermatitis, unspecified; E88.09 Other disorders of plasma-protein metabolism, not elsewhere classified; R26.9 Unspecified abnormalities of gait and mobility; B96.20 Unspecified Escherichia coli [E. coli] as the cause of diseases classified elsewhere; Z88.1 Allergy status to other antibiotic agents
CPT/HCPCS: 36415; 80048; 80053; 80061; 80202; 81001; 81025; 83036; 83605; 83735; 83880; 84100; 84145; 84443; 84484; 85007; 85025; 85610; 85651; 85730; 86140; 87040; 87077; 87081; 87088; 87186; 90715; 93005; 93306; 93971; 96365; 96367; 97161; 97530; 99285; A4649; A6154; A6223; A6253; A6260; A6446; A6449; G0378; J0696; J0735; J1644; J2185; J2270; J2405; J3370; J7030; J7040